=== PATIENT | male | born 1995 | race Caucasian/White ===

== ENCOUNTER 2017-10-11 16:32 | Emergency (ER) | payer BC ==
[~2017-10-11] VITALS: Ht 177.8 cm; Wt 70.2 kg
[2017-10-11 17:27] VITALS: TEMP 37.4; Ht 177.8 cm; Wt 70.2 kg
[2017-10-11] MEDS ORDERED: SODIUM CHLORIDE 0.9% 1000ML 2,000 ML IV STA (18:52)
[2017-10-11 19:15] LABS: BASO % 0.1 %; BASO ABS # 0.01 K/uL (0-0.2); EOS % 0.1 %; EOS ABS # 0.01 K/uL (0-0.5); HEMATOCRIT 46.8 % (42-52); HEMOGLOBIN 17.3 g/dL (14.0-18.0); IG# 0.02 K/uL (0.00-0.02); LYMPH % 16.6 %; LYMPH ABS # 1.13 K/uL (1.2-3.4); MEAN CELL VOLUME 88.8 fL (80-100); MEAN CORPUSCULAR HEMOGLOBIN 32.8 pg (25-34); MEAN PLATELET VOLUME 9.7 fL (7.4-10.4); MONO % 11.5 %; MONO ABS # 0.78 K/uL (0.11-0.59); NEUT % 71.4 %; NEUT ABS # 4.85 K/uL (1.4-6.5); PLATELET COUNT 216 K/uL (130-400); RED CELL DISTRIBUTION WIDTH CV 12.7 % (11.5-14.5); RED CELL DISTRIBUTION WIDTH SD 41.2 fL (36.4-46.3)
[2017-10-11 19:30] LABS: ALBUMIN 4.2 gm/dl (3.4-5.0); ALT/SGPT 34 U/L (12-78); AST/SGOT 16 U/L (15-37); BLOOD UREA NITROGEN 13 mg/dl (7-18); CALCIUM 8.5 mg/dl (8.5-10.1); CARBON DIOXIDE 26 mmol/L (21-32); CREATININE 1.03 mg/dl (0.60-1.40); GLUCOSE 105 mg/dl (70-99); LIPASE 72 U/L (73-393); POTASSIUM 3.1 mmol/L (3.5-5.1); SODIUM 136 mmol/L (136-145)
[2017-10-11 19:41] LABS: ALKALINE PHOSPHATASE 83 U/L (45-117); TOTAL PROTEIN 8.2 gm/dl (6.4-8.2)
[2017-10-11] MEDS ORDERED: POTASSIUM CHLORIDE 10 MEQ TABCR PO STA (19:52)
[2017-10-11] MEDS ORDERED: ONDANSETRON HOME PACK 4MG OD TAB PO ONE (21:30)
[2017-10-11 21:46] VITALS: BP 151/107; PULSE 113; O2SAT 99
--- NOTE | 2017-10-12 03:41 | EMERGENCY ROOM VISIT NOTE ---
History Report prepared by Licha: Iftikhar Reyes Under the Supervision of: Dr. Zia Snow M.D. First contact with patient: 18:49 Chief Complaint: IRREGULAR HEARTBEAT Stated Complaint: BLOOD PRESSURE/ HEART BEAT- [facility] REFERRED History of Present Illness The patient is a 22 year old male who presents to the Emergency Room with complaints of constant tachycardia that began prior to arrival. The patient states he was normal over the weekend until after he ate a turkey wrap yesterday. The patient states that he woke up in the middle of the night last night and was experiencing nausea. He reports that he vomited three times last night, but was able to fall back asleep. The patient states that he woke up at 0600 and began experiencing chills and another episode of vomiting and . He reports that he was able to drink Gatorade throughout the day and denies any other episodes of vomiting. The patient states that he went to [facility] where they found that he had hypertension and was tachycardic. Per the patient's report, his CBC chemistry panel was unremarkable and his flu testing was negative. He reports that he was sent to the ED for further evaluation. The patient states that he is currently not experiencing any nausea. He states that he believes he experienced his nausea and vomiting due to a turkey wrap he ate yesterday. The patient admits he did drink alcohol two nights in a row four days ago. The patient denies congestion, earaches, sick contact, LOC, headache, fevers, diaphoresis, visual changes, neck pain, chest pain, breathing difficulties, abdominal pain, back pain, hematemesis, melena, hematochezia, urinary symptoms, numbness, weakness, lymphadenopathy, rash, or other complaints. He denies a family history of heart problems or lung problems. 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 A total of ten systems were reviewed and were otherwise negative. Past Medical & Surgical Surgical Problems: (1) [place] teeth extracted Family History Cancer Diabetes mellitus Hypertension Social History Smoking Status: Never Smoker Smokeless Tobacco Use: No Alcohol Use: occasionally Drug Use: none Marital Status: single Housing Status: lives with roommate Occupation Status: [employer] student Physical Exam Vital Signs Date Time Temp Pulse Resp B/P (MAP) Pulse Ox O2 Delivery O2 Flow Rate FiO2 10/11/17 21:46 113 18 151/107 99 Room Air 10/11/17 20:59 119 16 153/103 99 Room Air 120 157/110 123 161/99 10/11/17 20:48 109 16 148/95 100 Room Air 10/11/17 19:50 119 18 171/99 99 Room Air 10/11/17 19:16 112 10/11/17 19:00 98 Room Air 10/11/17 19:00 120 18 162/103 98 Room Air 10/11/17 17:27 37.4 119 18 149/92 96 Room Air Physical Exam GENERAL: Awake, alert, well-appearing, in no distress HENT: Normocephalic, atraumatic. Oropharynx unremarkable. EYES: Normal conjunctiva. Sclera non-icteric. NECK: Supple. No nuchal rigidity. FROM. No JVD. RESPIRATORY: Clear to auscultation. CARDIAC: Tachycardic rate, normal rhythm. Extremities warm and well perfused. Pulses equal. ABDOMEN: Soft, non-distended. No tenderness to palpation. No rebound or guarding. No masses. RECTAL: Deferred. MUSCULOSKELETAL: Chest examination reveals no tenderness. The back is symmetrical on inspection without obvious abnormality. There is no CVA tenderness to palpation. No joint edema. LOWER EXTREMITIES: Calves are equal size bilaterally and non-tender. No edema. No discoloration. NEURO: Normal sensorium. No sensory or motor deficits noted. SKIN: No rash or jaundice noted. Medical Decision & Procedures Laboratory Results 10/11/17 19:05 Red Blood Count 5.27, Mean Corpuscular Volume 88.8, Mean Corpuscular Hemoglobin 32.8, Mean Corpuscular Hemoglobin Concent 37.0, Mean Platelet Volume 9.7, Neutrophils (%) (Auto) 71.4, Lymphocytes (%) (Auto) 16.6, Monocytes (%) (Auto) 11.5, Eosinophils (%) (Auto) 0.1, Basophils (%) (Auto) 0.1, Neutrophils # (Auto ) 4.85, Lymphocytes # (Auto) 1.13, Monocytes # (Auto) 0.78, Eosinophils # (Auto ) 0.01, Basophils # (Auto) 0.01 10/11/17 19:05 Test 10/11/17 19:05 10/11/17 19:50 White Blood Count 6.80 K/uL (4.8-10.8) Red Blood Count 5.27 M/uL (4.7-6.1) Hemoglobin 17.3 g/dL (14.0-18.0) Hematocrit 46.8 % (42-52) Mean Corpuscular Volume 88.8 fL (80-100) Mean Corpuscular Hemoglobin 32.8 pg (25-34) Mean Corpuscular Hemoglobin Concent 37.0 g/dl (32-36) Platelet Count 216 K/uL (130-400) Mean Platelet Volume 9.7 fL (7.4-10.4) Neutrophils (%) (Auto) 71.4 % Lymphocytes (%) (Auto) 16.6 % Monocytes (%) (Auto) 11.5 % Eosinophils (%) (Auto) 0.1 % Basophils (%) (Auto) 0.1 % Neutrophils # (Auto) 4.85 K/uL (1.4-6.5) Lymphocytes # (Auto) 1.13 K/uL (1.2-3.4) Monocytes # (Auto) 0.78 K/uL (0.11-0.59) Eosinophils # (Auto) 0.01 K/uL (0-0.5) Basophils # (Auto) 0.01 K/uL (0-0.2) RDW Standard Deviation 41.2 fL (36.4-46.3) RDW Coefficient of Variation 12.7 % (11.5-14.5) Immature Granulocyte % (Auto) 0.3 % Immature Granulocyte # (Auto) 0.02 K/uL (0.00-0.02) Anion Gap 9.0 mmol/L (3-11) Est Creatinine Clear Calc Drug Dose 111.7 ml/min Estimated GFR () 119.0 Estimated GFR (Non- 102.6 BUN/Creatinine Ratio 12.7 (10-20) Calcium Level 8.5 mg/dl (8.5-10.1) Magnesium Level 2.1 mg/dl (1.8-2.4) Total Bilirubin 1.3 mg/dl (0.2-1) Direct Bilirubin 0.2 mg/dl (0-0.2) Aspartate Amino Transf (AST/SGOT) 16 U/L (15-37) Alanine Aminotransferase (ALT/SGPT) 34 U/L (12-78) Alkaline Phosphatase 83 U/L (45-117) Troponin I < 0.015 ng/ml (0-0.045) Total Protein 8.2 gm/dl (6.4-8.2) Albumin 4.2 gm/dl (3.4-5.0) Lipase 72 U/L (73-393) Thyroid Stimulating Hormone (TSH) 0.739 uIu/ml (0.300-4.500) Urine Color DK YELLOW Urine Appearance CLEAR (CLEAR) Urine pH 6.5 (4.5-7.5) Urine Specific [employer] 1.031 (1.000-1.030) Urine Protein 1+ (NEG) Urine Glucose (UA) NEG (NEG) Urine Ketones 2+ (NEG) Urine Occult Blood NEG (NEG) Urine Nitrite NEG (NEG) Urine Bilirubin NEG (NEG) Urine Urobilinogen NEG (NEG) Urine Leukocyte Esterase NEG (NEG) Urine WBC (Auto) 1-5 /hpf (0-5) Urine RBC (Auto) 0-4 /hpf (0-4) Urine Hyaline Casts (Auto) 1-5 /lpf (0-5) Urine Epithelial Cells (Auto) 10-20 /lpf (0-5) Urine Bacteria (Auto) NEG (NEG) Laboratory results reviewed by me Medications Administered Medications (Trade) Dose Ordered Sig/Clay Route Start Time Stop Time Status Last Admin Dose Admin Sodium Chloride 2,000 ml @ 999 mls/hr Q2H1M STAT IV 10/11/17 18:52 10/11/17 20:52 DC 10/11/17 19:05 999 MLS/HR Potassium Chloride (Klor-Con M10) 20 meq NOW STAT PO 10/11/17 19:52 10/11/17 19:53 DC 10/11/17 19:58 20 MEQ Ondansetron HCl (ZOFRAN ODT 4MG Home Pack) 1 homepack UD ONCE PO 10/11/17 21:30 10/11/17 21:31 DC 10/11/17 21:46 1 HOMEPACK ECG Indication: tachycardia Rate (beats per minute): 118 Rhythm: sinus tachycardia Findings: no acute ischemic change, no ectopy Change: Patient's electrocardiogram was interpreted by me. ED Course 1851: Ordered Sodium Chloride 2000 ml @ 999 mls/hr IV. 1857: The patient was evaluated in room A10. A complete history and physical exam was performed. 1951: Ordered Potassium Chloride 20 meq PO. 1955: I reevaluated the patient and he is feeling better. 2121: I reevaluated the patient. Discussed results and discharge instructions: He verbalized understanding and agreement. The patient is ready for discharge. 2129: Ordered Ondansetron HCl 1 homepack PO. Medical Decision Triage Nursing notes reviewed. The patient's presentation and history were concerning for high blood pressure and tachycardia after vomiting. Etiologies such as electrolyte abnormality, dehydration, ectopy, cardiac dysrhythmia, electrolyte abnormality, thyroid dysfunction, pulmonary embolism, infection, gastrointestinal, as well as others were entertained. The patient was evaluated and was doing very well. He has high blood pressure. He has mild tachycardia. He has no other symptoms. He has not vomited since this morning. He was hydrated. Blood work was checked. He had an unremarkable CBC, chemistry panel, cardiac markers, TSH, and magnesium. Potassium was minimally low. He was given oral potassium. His family arrived to the emergency department. I discussed his current situation and his mother notes that he was told he had a mild elevation of his blood pressure on a previous doctor visit. There is a family history of early hypertension. The patient has no risk factors for cardiac disease or PE. He has no evidence of thyrotoxicosis. With his electrolyte abnormality being minimal there is no obvious cause for his findings. He may have a component of benign hypertension given his family history. He will need to be monitored closely. Family and the patient feel comfortable with this. I gave my usual and customary discussion regarding this issue. Close outpatient follow-up was recommended. By the evaluation outlined above other emergent etiologies such as those listed in the differential, as well as others, were deemed relatively unlikely. The patient was educated about the findings as listed above. All questions were answered and the patient was pleased with the treatment. Return instructions were outlined and the patient was discharged in stable condition. The patient was referred to [facility] for follow-up for a recheck of the current condition. Medication Reconcilliation Current Medication List: was personally reviewed by me Blood Pressure Screening Patient's blood pressure: Elevated blood pressure Blood pressure disposition: Referred to PCP Impression Primary Impression: Vomiting Additional Impressions: Hypokalemia HTN (hypertension) Scribe Attestation The scribe's documentation has been prepared under my direction and personally reviewed by me in its entirety. I confirm that the note above accurately reflects all work, treatment, procedures, and medical decision making performed by me. Departure Information Dispostion Home / Self-Care Referrals No Doctor, Assigned (PCP) [facility] Patient Instructions Hypertension Dc, My [facility] Additional Instructions Zofran(odansetron) tablets 4mg: Take one and allow it to dissolve in your mouth every four to six hours as needed for nausea or vomiting. Ibuprofen(Motrin, Advil) may be used for fever or pain. Use 600mg every six hours as needed. Take with food. Avoid using more than 2400mg in a 24 hour period. Do not use 2400mg per day for more than three consecutive days without physician direction. Prolonged inappropriate use can lead to stomach upset or ulcers. (AND/OR) Acetaminophen(Tylenol) may be used for fever or pain. Use 1000mg every six hours as needed. Avoid using more than 4000mg in a 24 hour period. Rest and drink plenty of fluids as tolerated. Slow sips of water or sports drinks are recommended instead of large amounts all at once. Continue current medications. Once your stomach is settled start with a clear liquid diet (jello, soup broth, etc.) and then advance as tolerated. You should avoid full, heavy meals for about 24 hrs from the time your symptoms resolved. Return to the ER for persistent vomiting, fevers, abdominal pain, chest pains, difficulty breathing, black or bloody stools, worsening of your condition, or as needed. Follow up with [facility] this week for a blood pressure check and for a recheck of your current condition Problem Qualifiers
== END 2017-10-11 21:48 | disposition home or self-care (01) ==
LOC: C.EDB 16:36 → C.EDA 21:48
DX: R11.10 Vomiting, unspecified (principal); E87.6 Hypokalemia; I10 Essential (primary) hypertension; Z80.9 Family history of malignant neoplasm, unspecified; Z83.3 Family history of diabetes mellitus; Z82.49 Family history of ischemic heart disease and other diseases of the circulatory system